=== PATIENT | female | born 1940 | race Two or more races ===

== ENCOUNTER 2023-12-24 21:46 | Inpatient (IN) | payer MEDICARE, MEDICAID ==
[~2023-12-24] VITALS: Ht 152.4 cm; Wt 49.4 kg
[~2023-12-24 21:46] MED LIST: ALEN70TA65 PO; ARIP5TAB37 PO; CEPH-558 PO; LISI-894 PO; METF-1211 PO; MULT-1303 PO; THIA100T80 PO
[2023-12-24 22:25] LABS: BASOPHILS % (AUTO) 0.3 % (0.0-2.0); EOSINOPHILS % (AUTO) 2.9 % (1.0-6.0); HEMATOCRIT 40.2 % (36-46); HEMOGLOBIN 13.3 g/dL (12.0-16.0); LYMPHOCYTES # (AUTO) 0.8 K/uL (1.0-4.8); LYMPHOCYTES % (AUTO) 17.2 % (22.0-44.0); MEAN CORPUSCULAR HEMOGLOBIN 29.4 pg (26.0-34.0); MEAN CORPUSCULAR HGB CONC 33.1 G/dL (31.0-37.0); MEAN CORPUSCULAR VOLUME 89 fL (80-100); MONOCYTES # (AUTO) 0.4 K/uL (0.1-1.0); MONOCYTES % (AUTO) 9.3 % (2.0-9.0); NEUTROPHILS # (AUTO) 3.1 K/uL (1.8-7.7); NEUTROPHILS % (AUTO) 70.3 % (40.0-70.0); PLATELET COUNT (AUTO) 211 K/uL (150-450); RED BLOOD CELL COUNT(AUTO) 4.52 MIL/uL (4.00-5.20); RED CELL DISTRIBUTION WIDTH 14.8 % (11.5-14.5); WHITE BLOOD COUNT (AUTO) 4.5 K/uL (4.5-11.0)
[2023-12-24 22:34] LABS: ANION GAP 8 mmol/L (8-16); CALCIUM, TOTAL 9.7 mg/dL (8.8-10.5); CARBON DIOXIDE 28 mmol/L (22-29); CHLORIDE 105 mmol/L (98-107); CREATININE 0.83 mg/dL (0.60-1.30); GLOMERULAR FILTR. RATE CALC > 60 mL/min (>60); GLUCOSE,RANDOM 82 mg/dL (70-110); POTASSIUM 3.8 mmol/L (3.5-5.1); SODIUM SERUM 141 mmol/L (136-145); UREA NITROGEN, BLOOD 17 mg/dL (7-18)
[2023-12-24 22:40] LABS: ALANINE AMINOTRANSFERASE 31 U/L (12-78); ALBUMIN 3.5 g/dL (3.4-5.0); ALKALINE PHOSPHATASE 69 U/L (46-116); ASPARTATE AMINOTRANSFERASE 24 U/L (15-37); BILIRUBIN,TOTAL 0.5 mg/dL (0.1-1.0); TOTAL PROTEIN, SERUM 7.1 g/dL (6.4-8.2)
[2023-12-24 22:41] LABS: ALCOHOL, BLOOD (SERUM) < 3 mg/dL (0-10)
[2023-12-24 23:01] LABS: COVID AG,FIA SOURCE NASAL SWAB
[2023-12-24 23:24] LABS: SARS-COV2 (COVID) ANTIGEN,FIA Negative (Negative)
[2023-12-24] MEDS: LORazepam 1 MG TABLET PO ONE (23:47)
[2023-12-24] MEDS: DiphenhydrAMINE HCL 25 MG CAPSULE PO ONE (23:47)
[2023-12-24] MEDS: HALOPERIDOL 5 MG TABLET PO ONE (23:47)
[2023-12-25 08:00] VITALS: O2SAT 98
[2023-12-25] MEDS ORDERED: LORazepam 2 MG TABLET PO PRN ×2 (08:15→12:15)
[2023-12-25] MEDS ORDERED: HALOPERIDOL 5 MG TABLET PO PRN (08:15)
[2023-12-25] MEDS ORDERED: ZOLPIDEM TARTRATE 10 MG TABLET PO PRN (08:15)
[2023-12-25] MEDS: TUBERCULIN, PURIFIED PROTEIN DERIVATIVE 5 TU/0.1 ML SYRINGE ID ONE (08:45)
[2023-12-25] MEDS ORDERED: PROMETHAZINE HCL 25 MG TABLET PO PRN (08:45)
[2023-12-25] MEDS ORDERED: GuaiFENesin/D-METHORPHAN [SUGAR-FREE] 200-20MG/10 ML SYRUP UDCUP PO PRN (08:45)
[2023-12-25] MEDS ORDERED: MAG HYDROX/ALUMINUM HYD/SIMETH ES 30 ML SUSPENSION UDCUP PO PRN (08:45)
[2023-12-25] MEDS ORDERED: HydrOXYzine PAMOATE 50 MG CAPSULE PO PRN (08:45)
[2023-12-25] MEDS ORDERED: ACETAMINOPHEN 325 MG TABLET PO PRN (08:45)
[2023-12-25] MEDS ORDERED: MAGNESIUM HYDROXIDE SUSPENSION 30 ML UDCUP PO PRN (08:45)
[2023-12-25] MEDS ORDERED: LOPERAMIDE HCL 2 MG CAPSULE PO PRN (08:45)
[2023-12-25] MEDS: MULTIVITAMINS WITH MINERALS, THERAPEUTIC TABLET PO SCH (09:00)
[2023-12-25] MEDS: THIAMINE 100 MG TABLET PO SCH (09:00)
[2023-12-25] MEDS: FOLIC ACID 1 MG TABLET PO SCH (09:00)
[2023-12-25] MEDS: FLUoxetine HCL 10 MG CAPSULE PO SCH (09:00)
[2023-12-25 09:44] LABS: APPEARANCE,URINE CLEAR (CLEAR); BILIRUBIN,URINE NEGATIVE (NEGATIVE); COLOR,URINE COLORLESS (YELLOW); GLUCOSE, URINE (UA) NEGATIVE (NEGATIVE); LEUKOCYTE ESTERASE ,URINE NEGATIVE (NEGATIVE); NITRATE,URINE NEGATIVE (NEGATIVE); OCCULT BLOOD,URINE NEGATIVE (NEGATIVE); PH,URINE 7.5 (5.0-8.0); PH,URINE DRUG SCREEN 7.5 (5.0-8.0); PROTEIN,URINE NEGATIVE (NEGATIVE); SPECIFIC GRAVITIY, URINE 1.011 (1.003-1.030); UROBILINOGEN,URINE <=1.0 mg/dL (<=1.0)
[2023-12-25 09:46] LABS: GLUCOMETER DEV NAME(LOC) ER.7; GLUCOSE,POINT OF CARE 119 MG/DL (70-110)
[2023-12-25 09:49] LABS: AMPHET/METH SCREEN,URINE NEGATIVE (NEGATIVE); BARBITURATE SCREEN, URINE NEGATIVE (NEGATIVE); BENZODIAZEPINES SCREEN,URINE NEGATIVE (NEGATIVE); CANNABINOID SCREEN,URINE NEGATIVE (NEGATIVE); COCAINE SCREEN,URINE NEGATIVE (NEGATIVE); METHADONE SCREEN, URINE NEGATIVE (NEGATIVE); OPIATE SCREEN,URINE NEGATIVE (NEGATIVE); PHENCYCLIDINE SCREEN,URINE NEGATIVE (NEGATIVE)
[2023-12-25 09:56] LABS: ALCOHOL, URINE DRUG SCREEN NEGATIVE (NEGATIVE)
[2023-12-25 11:38] VITALS: BP 130/70; PULSE 93; RESP 18; TEMP 96.8; O2SAT 99
[2023-12-25] MEDS ORDERED: GLUCAGON,HUMAN RECOMBINANT 1 MG VIAL IM PRN (12:15)
[2023-12-25] MEDS: PALIPERIDONE PALMITATE 234 MG/1.5 ML SYRINGE IM ONE (15:00)
[2023-12-25] MEDS: MetFORMIN HCL 500 MG TABLET PO SCH (17:30)
[2023-12-25] MEDS: BREXPIPRAZOLE 0.25 MG TABLET PO SCH (21:00)
[2023-12-25] MEDS: ATORVASTATIN CALCIUM 10 MG TABLET PO SCH (21:00)
[2023-12-25] MEDS: MELATONIN 3 MG TABLET PO SCH (21:00)
[2023-12-25 23:39] VITALS: BP 132/74; PULSE 96; RESP 18; TEMP 97.8; O2SAT 98
[2023-12-26 06:11] LABS: GLUCOMETER DEV NAME(LOC) 3E.I 2; GLUCOSE,POINT OF CARE 177 MG/DL (70-110)
[2023-12-26] MEDS: ALENDRONATE SODIUM 70 MG TABLET PO SCH (06:30)
[2023-12-26] MEDS: INSULIN LISPRO 100 UNITS/ML SQ PRN (06:39)
[2023-12-26 07:23] LABS: HEMOGLOBIN A1C 6.8 % (3.8-5.6)
[2023-12-26 07:46] LABS: CHOL/HDL RATIO 3.1 (3.9-5.7); FREE T4 (FREE THYROXINE) 1.24 ng/dL (0.76-1.46); THYROID STIMULATING HORMONE 1.85 uIU/mL (0.36-3.74)
[2023-12-26 08:40] VITALS: BP 110/81; PULSE 81; RESP 17; TEMP 97.8; O2SAT 98
[2023-12-26] MEDS: LISINOPRIL 20 MG TABLET PO SCH (09:00)
[2023-12-26] MEDS ORDERED: MULTIVITAMINS WITH MINERALS, THERAPEUTIC TABLET PO SCH (09:00)
[2023-12-26] MEDS: BACITRACIN 28 GM OINTMENT TP SCH (09:00)
[2023-12-26 17:41] LABS: GLUCOMETER DEV NAME(LOC) 3EX.2; GLUCOSE,POINT OF CARE 178 MG/DL (70-110)
[2023-12-26 21:08] VITALS: RESP 18
[2023-12-27] MEDS: LISINOPRIL 5 MG TABLET PO SCH (09:00)
[2023-12-27 09:45] VITALS: BP 148/57; PULSE 98; RESP 18; TEMP 98.1; O2SAT 99
[2023-12-27] MEDS: MetFORMIN HCL 500 MG TABLET PO SCH (17:48)
[2023-12-27 18:00] LABS: GLUCOMETER DEV NAME(LOC) 3E.I 2; GLUCOSE,POINT OF CARE 165 MG/DL (70-110)
[2023-12-28 06:16] LABS: GLUCOMETER DEV NAME(LOC) 3E.I 2; GLUCOSE,POINT OF CARE 162 MG/DL (70-110)
[2023-12-28 10:43] VITALS: RESP 19
[2023-12-28 17:26] LABS: GLUCOMETER DEV NAME(LOC) 3E.I 2; GLUCOSE,POINT OF CARE 140 MG/DL (70-110)
[2023-12-28 21:06] VITALS: RESP 18
[2023-12-29] MEDS ORDERED: IBUPROFEN 400 MG TABLET PO PRN (06:30)
[2023-12-29 07:11] LABS: GLUCOMETER DEV NAME(LOC) 3E.I 2; GLUCOSE,POINT OF CARE 178 MG/DL (70-110)
[2023-12-29] MEDS: PALIPERIDONE PALMITATE 156 MG/ML SYRINGE IM ONE (09:00)
[2023-12-29 09:58] VITALS: BP 120/59; PULSE 71; RESP 18; TEMP 97.1; O2SAT 95
[2023-12-29 16:35] LABS: GLUCOMETER DEV NAME(LOC) 3EX.2; GLUCOSE,POINT OF CARE 151 MG/DL (70-110)
[2023-12-29 21:16] VITALS: BP 121/77; PULSE 74; RESP 18; TEMP 97.1; O2SAT 98
[2023-12-30 06:51] LABS: GLUCOMETER DEV NAME(LOC) 3EX.2; GLUCOSE,POINT OF CARE 147 MG/DL (70-110)
[2023-12-30 10:04] VITALS: RESP 17; TEMP 97.3
[2023-12-30 20:27] VITALS: RESP 18
[2023-12-30] MEDS: BREXPIPRAZOLE 0.25 MG TABLET PO SCH (21:00)
[2023-12-31 06:06] LABS: GLUCOMETER DEV NAME(LOC) 3E.I 2; GLUCOSE,POINT OF CARE 148 MG/DL (70-110)
[2023-12-31 09:18] VITALS: RESP 18
[2023-12-31 17:46] LABS: GLUCOMETER DEV NAME(LOC) 3EX.2; GLUCOSE,POINT OF CARE 133 MG/DL (70-110)
[2023-12-31 21:05] VITALS: RESP 18
[2024-01-01 06:11] LABS: GLUCOMETER DEV NAME(LOC) 3E.I 2; GLUCOSE,POINT OF CARE 158 MG/DL (70-110)
[2024-01-01] MEDS: MetFORMIN HCL 500 MG TABLET PO SCH (07:10)
[2024-01-01 10:17] VITALS: BP 143/64; PULSE 84; RESP 18; TEMP 97.2; O2SAT 98
[2024-01-01 16:56] LABS: GLUCOMETER DEV NAME(LOC) 3EX.2; GLUCOSE,POINT OF CARE 186 MG/DL (70-110)
[2024-01-01 20:51] VITALS: RESP 18
[2024-01-02 06:06] LABS: GLUCOMETER DEV NAME(LOC) 3E.I 2; GLUCOSE,POINT OF CARE 132 MG/DL (70-110)
[2024-01-02 09:00] VITALS: BP 141/74; PULSE 88; RESP 18; TEMP 96.3
[2024-01-02 21:12] VITALS: BP 124/74; PULSE 97; RESP 18; TEMP 97.3
[2024-01-03 08:00] LABS: GLUCOMETER DEV NAME(LOC) 3E.I 2; GLUCOSE,POINT OF CARE 145 MG/DL (70-110)
[2024-01-03 10:13] VITALS: RESP 20
[2024-01-03 16:30] LABS: GLUCOMETER DEV NAME(LOC) 3E.I 2; GLUCOSE,POINT OF CARE 177 MG/DL (70-110)
[2024-01-03 22:06] VITALS: RESP 18
[2024-01-04] MEDS: LORazepam 0.5 MG TABLET PO PRN (08:41)
[2024-01-04] MEDS: HALOPERIDOL 2 MG TABLET PO PRN (08:41)
[2024-01-04 09:15] VITALS: RESP 18
[2024-01-04 09:49] VITALS: BP 151/74; PULSE 140; RESP 20; TEMP 98; O2SAT 98
[2024-01-04 17:16] LABS: GLUCOMETER DEV NAME(LOC) 3E.I 2; GLUCOSE,POINT OF CARE 114 MG/DL (70-110)
[2024-01-04 20:47] VITALS: RESP 17; TEMP 97.6
[2024-01-05 06:51] LABS: GLUCOMETER DEV NAME(LOC) 3E.I 2; GLUCOSE,POINT OF CARE 145 MG/DL (70-110)
[2024-01-05 09:30] VITALS: RESP 19
[2024-01-05 11:41] LABS: GLUCOMETER DEV NAME(LOC) 3E.I 2; GLUCOSE,POINT OF CARE 125 MG/DL (70-110)
[2024-01-05 17:35] LABS: GLUCOMETER DEV NAME(LOC) 3E.I 2; GLUCOSE,POINT OF CARE 148 MG/DL (70-110)
[2024-01-06 09:00] VITALS: RESP 18
[2024-01-06 17:21] LABS: GLUCOMETER DEV NAME(LOC) 3EX.2; GLUCOSE,POINT OF CARE 149 MG/DL (70-110)
[2024-01-06 20:30] VITALS: RESP 18
[2024-01-07 13:40] VITALS: RESP 18
[2024-01-07 20:52] VITALS: RESP 18
[2024-01-08 09:00] VITALS: BP_SYST 112; BP_SYST 126; BP_DIAS 57; BP_DIAS 62; PULSE 60; PULSE 62; RESP 17; TEMP 96; TEMP 98
[2024-01-08 20:33] VITALS: RESP 18
[2024-01-09 06:05] LABS: GLUCOMETER DEV NAME(LOC) 3E.I 2; GLUCOSE,POINT OF CARE 128 MG/DL (70-110)
[2024-01-09 09:44] VITALS: RESP 18
[2024-01-09 17:01] LABS: GLUCOMETER DEV NAME(LOC) 3EX.2; GLUCOSE,POINT OF CARE 195 MG/DL (70-110)
[2024-01-09 20:57] VITALS: RESP 18
[2024-01-10 12:39] VITALS: BP 124/63; PULSE 81; RESP 18; TEMP 97.2
[2024-01-10 20:54] VITALS: RESP 18
[2024-01-11 21:10] VITALS: BP 94/73; PULSE 98; RESP 18; TEMP 97.4
[2024-01-12 15:11] VITALS: RESP 18
[2024-01-12 20:59] VITALS: PULSE 91; RESP 19; TEMP 97.8
[2024-01-13 21:19] VITALS: BP 114/91; PULSE 100; RESP 18; TEMP 97.8
[2024-01-14 09:24] VITALS: RESP 18
[2024-01-14 20:40] VITALS: RESP 18
[2024-01-15 09:23] VITALS: RESP 17
[2024-01-15 21:02] VITALS: RESP 18
[2024-01-16 11:27] VITALS: RESP 18
[2024-01-16 20:35] VITALS: RESP 18
[2024-01-17 09:52] VITALS: BP 125/76; PULSE 91; RESP 18; TEMP 98.1; O2SAT 100
[2024-01-18 08:01] VITALS: RESP 18
[2024-01-18 21:34] VITALS: RESP 18
[2024-01-19 07:01] LABS: GLUCOMETER DEV NAME(LOC) 3E.I 2; GLUCOSE,POINT OF CARE 131 MG/DL (70-110)
[2024-01-19 08:07] VITALS: BP 123/76; PULSE 80; RESP 20; TEMP 97.5; O2SAT 99
[2024-01-19] MEDS ORDERED: DEXTROSE 50%-WATER 25 GM/50 ML SYRINGE IVP PRN (13:15)
[2024-01-19] MEDS: RisperiDONE ER SUSPENSION 100 MG/0.28 ML PRE-FILLED SYRINGE SQ ONE (18:50)
[2024-01-19 20:33] VITALS: RESP 18
[2024-01-20] MEDS: INSULIN LISPRO 100 UNITS/ML SQ PRN (06:55)
[2024-01-20 07:15] LABS: GLUCOMETER DEV NAME(LOC) 3E.I 2; GLUCOSE,POINT OF CARE 158 MG/DL (70-110)
[2024-01-21 09:00] VITALS: BP 126/65; PULSE 100; RESP 18; TEMP 97.3; O2SAT 100
[2024-01-21] MEDS ORDERED: SODIUM CHLORIDE 1 GM TABLET PO SCH (09:00)
[2024-01-21 17:01] LABS: GLUCOMETER DEV NAME(LOC) 3EX.2; GLUCOSE,POINT OF CARE 246 MG/DL (70-110)
[2024-01-21 20:33] VITALS: TEMP 98
[2024-01-22 20:35] VITALS: TEMP 97.7
[2024-01-23 09:09] VITALS: TEMP 98
[2024-01-23 21:22] VITALS: RESP 18
[2024-01-24 09:02] VITALS: RESP 17; TEMP 97.8
[2024-01-24 17:15] LABS: GLUCOMETER DEV NAME(LOC) 3EX.2; GLUCOSE,POINT OF CARE 152 MG/DL (70-110)
[2024-01-24 21:13] VITALS: RESP 18; TEMP 97.6
[2024-01-25 10:04] VITALS: RESP 18; TEMP 98.1
[2024-01-25 15:46] LABS: GLUCOMETER DEV NAME(LOC) 3EX.2; GLUCOSE,POINT OF CARE 179 MG/DL (70-110)
[2024-01-25 21:30] VITALS: RESP 18
[2024-01-26 07:05] LABS: GLUCOMETER DEV NAME(LOC) 3E.I 2; GLUCOSE,POINT OF CARE 152 MG/DL (70-110)
[2024-01-26] MEDS ORDERED: ZOLPIDEM TARTRATE 10 MG TABLET PO PRN (10:45)
[2024-01-26 22:04] VITALS: RESP 18
[2024-01-27 06:50] LABS: GLUCOMETER DEV NAME(LOC) 3E.I 2; GLUCOSE,POINT OF CARE 146 MG/DL (70-110)
[2024-01-27 08:50] VITALS: RESP 18
[2024-01-27 21:54] VITALS: RESP 18
[2024-01-28 06:15] LABS: GLUCOMETER DEV NAME(LOC) 3E.I 2; GLUCOSE,POINT OF CARE 187 MG/DL (70-110)
[2024-01-28 08:19] VITALS: RESP 18
[2024-01-28 22:29] VITALS: RESP 18
[2024-01-29 06:31] LABS: GLUCOMETER DEV NAME(LOC) 3E.I 2; GLUCOSE,POINT OF CARE 141 MG/DL (70-110)
[2024-01-29 20:20] LABS: GLUCOMETER DEV NAME(LOC) 3E.I 2; GLUCOSE,POINT OF CARE 174 MG/DL (70-110)
[2024-01-29 20:26] VITALS: RESP 18
[2024-01-30 09:42] VITALS: TEMP 98.1
[2024-01-30 21:03] VITALS: RESP 18
[2024-01-31 06:30] LABS: GLUCOMETER DEV NAME(LOC) 3E.I 2; GLUCOSE,POINT OF CARE 146 MG/DL (70-110)
[2024-01-31 08:00] LABS: BASOPHILS % (AUTO) 0.3 % (0.0-2.0); EOSINOPHILS % (AUTO) 5.8 % (1.0-6.0); HEMATOCRIT 34.9 % (36-46); HEMOGLOBIN 11.9 g/dL (12.0-16.0); LYMPHOCYTES # (AUTO) 0.6 K/uL (1.0-4.8); LYMPHOCYTES % (AUTO) 14.9 % (22.0-44.0); MEAN CORPUSCULAR HEMOGLOBIN 29.9 pg (26.0-34.0); MEAN CORPUSCULAR HGB CONC 34.2 G/dL (31.0-37.0); MEAN CORPUSCULAR VOLUME 88 fL (80-100); MONOCYTES # (AUTO) 0.4 K/uL (0.1-1.0); MONOCYTES % (AUTO) 11.8 % (2.0-9.0); NEUTROPHILS # (AUTO) 2.6 K/uL (1.8-7.7); NEUTROPHILS % (AUTO) 67.2 % (40.0-70.0); PLATELET COUNT (AUTO) 176 K/uL (150-450); RED BLOOD CELL COUNT(AUTO) 3.99 MIL/uL (4.00-5.20); RED CELL DISTRIBUTION WIDTH 14.6 % (11.5-14.5); WHITE BLOOD COUNT (AUTO) 3.8 K/uL (4.5-11.0)
[2024-01-31 08:10] LABS: ALANINE AMINOTRANSFERASE 17 U/L (12-78); ALBUMIN 2.8 g/dL (3.4-5.0); ALKALINE PHOSPHATASE 88 U/L (46-116); ANION GAP 7 mmol/L (8-16); ASPARTATE AMINOTRANSFERASE 19 U/L (15-37); BILIRUBIN,TOTAL 0.4 mg/dL (0.1-1.0); CALCIUM, TOTAL 8.7 mg/dL (8.8-10.5); CARBON DIOXIDE 27 mmol/L (22-29); CHLORIDE 106 mmol/L (98-107); CREATININE 0.54 mg/dL (0.60-1.30); GLOMERULAR FILTR. RATE CALC > 60 mL/min (>60); GLUCOSE,RANDOM 149 mg/dL (70-110); HEMOGLOBIN A1C 7.3 % (3.8-5.6); POTASSIUM 3.7 mmol/L (3.5-5.1); SODIUM SERUM 140 mmol/L (136-145); TOTAL PROTEIN, SERUM 6.1 g/dL (6.4-8.2); UREA NITROGEN, BLOOD 13 mg/dL (7-18)
[2024-01-31 10:55] VITALS: RESP 18
[2024-01-31 20:40] VITALS: RESP 18
[2024-02-01 06:20] LABS: GLUCOMETER DEV NAME(LOC) 3E.I 2; GLUCOSE,POINT OF CARE 159 MG/DL (70-110)
[2024-02-01 11:04] VITALS: RESP 20
[2024-02-01] MEDS ORDERED: ATOR10TA PO (12:55)
[2024-02-01] MEDS ORDERED: RISP100S IM (12:55)
[2024-02-01] MEDS ORDERED: METF-1211 PO (12:55)
[2024-03-19] MEDS ORDERED: RisperiDONE ER SUSPENSION 100 MG/0.28 ML PRE-FILLED SYRINGE SQ SCH (09:00)
== END 2024-02-01 14:16 | DRG 885 ==
LOC: EMS 21:48 → 3EX 12-25 07:29
PROVIDERS: ADMIT Psychiatry & Neurology Psychiatry; ATTEND Psychiatry & Neurology Psychiatry
PROC: GZHZZZZ Group Psychotherapy (ICD-10-PCS; principal; 2023-12-25)
PROC: GZ56ZZZ Individual Psychotherapy, Supportive (ICD-10-PCS; 2023-12-25)
DX: F20.0 Paranoid schizophrenia (principal); N18.9 Chronic kidney disease, unspecified; R45.851 Suicidal ideations; E11.22 Type 2 diabetes mellitus with diabetic chronic kidney disease; M81.0 Age-related osteoporosis without current pathological fracture; I12.9 Hypertensive chronic kidney disease with stage 1 through stage 4 chronic kidney disease, or unspecified chronic kidney disease; E78.5 Hyperlipidemia, unspecified; S60.211A Contusion of right wrist, initial encounter; M19.031 Primary osteoarthritis, right wrist; W18.39XA Other fall on same level, initial encounter; Z20.822 Contact with and (suspected) exposure to COVID-19; S51.011A Laceration without foreign body of right elbow, initial encounter; Y93.89 Activity, other specified; Z91.148 Patient's other noncompliance with medication regimen for other reason; Y92.89 Other specified places as the place of occurrence of the external cause; Y99.8 Other external cause status
CPT/HCPCS: 80053; 80061; 80307; 81003; 82962; 83036; 84439; 84443; 85025; 86592; 97116; 97161; 97167; 99285; G0378; G0480